=== PATIENT | male | born 1955 | race Caucasian/White ===

== ENCOUNTER → 2017-12-12 | Day surgery (SDC) | payer OTHER | END | disposition home or self-care (01) | LOC: JRADIR 12:04 | PROVIDERS: ATTEND Surgery | PROC: 0F9430Z Drainage of Gallbladder with Drainage Device, Percutaneous Approach (ICD-10-PCS; principal; 2017-12-12) | DX: T85.9XXA Unspecified complication of internal prosthetic device, implant and graft, initial encounter (principal); K80.20 Calculus of gallbladder without cholecystitis without obstruction | CPT/HCPCS: 47536; 49423; 74301-FY; A4358; C1729; C1769 ==

== ENCOUNTER 2018-01-17 10:40 | Day surgery (SDC) | payer OTHER ==
--- NOTE | 2018-01-16 13:08 | HP ---
DATE OF ADMISSION: The patient is to be admitted to the hospital tomorrow, January 17, 2018. HISTORY: This is a 62-year-old male admitted to the hospital for a cholecystectomy. The patient is morbidly obese and has had prior abdominal surgery. The patient had been offered an elective cholecystectomy in the past but had declined. More recently, he presented with acute cholecystitis that required percutaneous drainage. He has since recovered from that acute event and presents now for elective removal of his gallbladder for chronic cholecystitis and cholelithiasis. The patient had initially contemplated elective cholecystectomy a year ago but ultimately declined. He understands he is at high risk for conversion to an open procedure secondary to adhesions and to his morbid obesity. Unfortunately, he has continued to have multiple bouts of biliary colic despite a low-fat diet and as mentioned above was recently admitted to the hospital and required percutaneous drainage. PAST MEDICAL HISTORY: Significant for a small bowel stromal tumor, hypertension, arthritis, morbid obesity, chronic cholecystitis and cholelithiasis. PAST SURGICAL HISTORY: Laparotomy for small bowel resection and appendectomy. ALLERGIES: None known. SOCIAL HISTORY: Negative for tobacco. Negative for alcohol. MEDICATIONS: 1. Norvasc. 2. Prinivil. 3. Creatinine. 4. Gleevec. FAMILY HISTORY: Essentially nil. REVIEW OF SYSTEMS: Nil. PHYSICAL EXAMINATION: Abdomen obese, soft and nontender. Cholecystostomy tube in place in the right upper quadrant and draining. Large midline scar noted. IMPRESSION: 1. Chronic cholecystitis/cholelithiasis. 2. Recent acute cholecystitis requiring percutaneous drainage. Cholecystostomy tube is still in place. PLAN: Marisol cutdown laparoscopic cholecystectomy; possible open cholecystectomy. Indications, alternatives and possible complications, particularly but not limited to the possibility of intra-abdominal injury secondary to adhesive disease and the need for conversion, were review. Consent was obtained. The patient will be seen preoperatively by his primary medical doctors. Please refer to those notes for those medical details. MACI GOYAL M.D. [id number]
[2018-01-17] MEDS ORDERED: ERTAPENEM SODIUM 1 GM VIAL ONE (11:24)
[2018-01-17 11:53] VITALS: BMI 40.8
[2018-01-17] MEDS ORDERED: fentaNYL CITRATE 250 MCG/5 ML VIAL ONE (12:07)
[2018-01-17] MEDS ORDERED: LIDOCAINE HCL/PF 2% SDV 5ML VIAL ONE (12:07)
[2018-01-17] MEDS ORDERED: MIDAZOLAM HCL 2 MG/2 ML SINGLE DOSE VIAL ONE (12:07)
[2018-01-17] MEDS ORDERED: PROPOFOL 20 ML ONE ×2 (12:07)
[2018-01-17] MEDS ORDERED: ROCURONIUM BROMIDE 50 MG/5 ML VIAL ONE ×3 (12:07→15:17)
[2018-01-17] MEDS ORDERED: DEXAMETHASONE SOD PHOSPHATE 4 MG/1 ML VIAL ONE (12:07)
[2018-01-17] MEDS ORDERED: ERTAPENEM SODIUM 1 GM/50 ML PRE-DOCKED IVPB ONE (14:10)
[2018-01-17] MEDS ORDERED: PROMETHAZINE HCL 25 MG/1 ML VIAL IVPB PRN (15:50)
[2018-01-17] MEDS ORDERED: ONDANSETRON 4 MG/2 ML VIAL IVPUSH PRN ×2 (15:50→18:20)
[2018-01-17] MEDS ORDERED: LACTATED RINGERS SOLUTION 1,000 ML IV SCH (16:00)
[2018-01-17] MEDS ORDERED: GLYCOPYRROLATE 0.2 MG/1 ML VIAL ONE (16:14)
[2018-01-17] MEDS ORDERED: NEOSTIGMINE METHYLSULFATE 0.5 MG/ML - 10 ML MDV ONE (16:14)
[2018-01-17] MEDS: METOPROLOL TARTRATE 5 MG/5 ML VIAL IVPUSH ONE ×2 (17:00→20:23)
[2018-01-17] MEDS ORDERED: ACETAMINOPHEN INJECTION 100 ML IVPB ONE (17:48)
[2018-01-17] MEDS ORDERED: ACETAMINOPHEN 1000 MG/100 ML VIAL (NON FORMULARY) IVPB ONE ×2 (17:50→18:45)
[2018-01-17] MEDS ORDERED: KETOROLAC TROMETHAMINE 15 MG/ML VIAL IVPUSH PRN (18:19)
[2018-01-17] MEDS ORDERED: D5-1/2NS+20 MEQ KCL - 20 MEQ/1,000 ML INFUS.BAG IV SCH (18:30)
[2018-01-17] MEDS ORDERED: oxyCODONE HCL 5 MG TABLET PO PRN (18:38)
[2018-01-17] MEDS: morphine SULFATE 4 MG/ML VIAL IVPB PRN (20:33)
[2018-01-17] MEDS: FAMOTIDINE 20 MG/50 ML IVPB 20 MG/50 ML MG IVPB SCH (21:15)
--- NOTE | 2018-01-18 00:50 | OP ---
DATE OF OPERATION: 01/17/2018 PREOPERATIVE DIAGNOSIS: Chronic cholecystitis/cholelithiasis/cholecystostomy tube status. POSTOPERATIVE DIAGNOSIS: Chronic cholecystitis/cholelithiasis/cholecystostomy tube status. PROCEDURE: Laparoscopic cholecystectomy/removal of foreign body, extensive lysis of adhesions. SURGEON: Wilver Nguyen MD WEIGHT TRAINER: Eber Acosta MD ANESTHESIA: Patricia Garcia MD (general) HISTORY: A 62-year-old man who had prior abdominal surgery remotely. Patient went on to develop chronic cholecystitis and cholelithiasis, for which he was initially offered surgery but declined. More recently admitted with severe acute cholecystitis, which was managed with percutaneous cholecystostomy. Patient presents now at this juncture for laparoscopic cholecystectomy and removal of the cholecystostomy tube. Indications, alternatives, and possible complications were reviewed. Consent was obtained. DESCRIPTION OF PROCEDURE: With the patient in the supine position, administered general anesthesia, the abdomen was prepped and draped in the sterile fashion using Chlorhexidine. An infraumbilical midline incision was made in the preexisting midline scar and deepened into the subcutaneous base. The cutdown ensued until the peritoneum was identified, incised, and the abdominal cavity entered. Marisol catheter placed through the defect. The catheter was anchored to the skin. The abdomen was insufflated to an adequate pressure using CO2 gas. The camera lens was passed through the infraumbilical Marisol catheter. There were multiple adhesions in the abdomen at that level, which were difficult to navigate as there were no open spaces allowing access to the upper abdomen. At this juncture, the decision was made to perform Marisol catheter in the epigastric midline. Again, a small skin defect was created and the subcutaneous tissues . The fascia was incised as well as the peritoneum and the abdominal cavity entered. Again, a Marisol catheter was placed in the upper abdomen and anchored appropriately. The camera lens was passed through the epigastric port and the upper abdomen as relatively free. Two right upper quadrant 5-mm anterolateral ports were placed, which clamps were passed to allow lysis of adhesions. Under direct vision, the adhesions in the mid abdomen were taken down under direct vision, freeing the entire mid abdominal wall. Ultimately, the catheter at the infraumbilical port site was seen. The camera lens was then passed once again through the infraumbilical port. The operating instruments were passed through the epigastric port. The 5-mm anterolateral ports were used to provide retraction and aid in dissection. Exploration of the right upper quadrant revealed a gross chronic gallbladder, which was rock hard throughout its entire length and quite adherent to the liver. Gallbladder was freed. At the sera hepatis, the structures were identified. The cystic duct was noted en route to the common bile duct. The adjacent cystic artery was noted as well. The cystic duct appeared rather capacious despite normal liver function studies. Using a 30-mm EndoGIA with 2.5-mm clips, the cystic duct was taken at its junction with the gallbladder. The adjacent artery was managed with the ligature. In order to free the gallbladder from the gallbladder bed, the ligature was used throughout most of the dissection. Ultimately, the gallbladder was freed. The right upper quadrant was irrigated. The irrigant retrieved. Adequate hemostasis secured at the liver bed and the right upper quadrant. Gallbladder was placed in a retrieval bag. All ports were then removed under direct vision. No bleeding identified. Ultimately the gallbladder was extracted through the infraumbilical port site, which needed to be extended in order to facilitate delivery of the large calculus gallbladder. Gallbladder was ultimately delivered. The gas was allowed to escape from the peritoneal cavity. The fascia at both the infraumbilical and epigastric port sites were closed with interrupted number 1 Vicryl sutures. All skin wounds were closed using metallic clips. The cholecystostomy tube, which had been removed just prior to the onset of the procedure, was discarded. The needle and instrument count were correct. Estimated blood loss: Minimal. Specimens: Gallbladder. Drains: None. The patient tolerated the procedure. The procedure was terminated. Haris [id number] MTDD
[2018-01-18] MEDS: morphine SULFATE 4 MG/ML VIAL IVPB PRN (01:54)
[2018-01-18 05:44] VITALS: TEMP 98.2
[2018-01-18 09:13] VITALS: BP 143/89; PULSE 76
[2018-01-18] MEDS: FAMOTIDINE 20 MG/50 ML IVPB 20 MG/50 ML MG IVPB SCH (09:59)
[2018-01-18] MEDS ORDERED: LISINOPRIL 10 MG TABLET (FP) PO SCH (10:00)
[2018-01-18] MEDS ORDERED: ERTAPENEM SODIUM 1 GM in SODIUM CHLORIDE 100 ML IVPB SCH (10:00)
[2018-01-18] MEDS ORDERED: ENOXAPARIN NA (PORCINE) 40 MG/0.4 ML DISP.SYRIN SQ SCH (10:00)
[2018-01-18] MEDS ORDERED: HYDROCHLOROTHIAZIDE 25 MG TABLET (FP) PO SCH (10:00)
--- NOTE | 2018-01-18 12:52 | PN ---
Progress Note (short form) - Note Progress Note: Anesthesia postop note 62 y/o M s/p GA for Lap milady POD#1, vss, aaox3, no complaints. NO anesthesia complications.
--- NOTE | 2018-01-19 16:37 | PATH ---
Surgical Pathology Report Patient Name: ROSA IBANEZ [facility]. Rec. #: [id number] /Age/Gender: 1955 (Age: 62) / M Account: [id number] Location: [facility] SURGICAL Taken: 01/17/2018 Received: 01/18/2018 Reported: 01/19/2018 Physicians: Wilver Nguyen M.D. Specimen(s) Received GALLBLADDER Clinical History Calculus of gallbladder Final Diagnosis GALLBLADDER, LAPAROSCOPIC CHOLECYSTECTOMY: CHRONIC CHOLECYSTITIS WITH CHOLELITHIASIS. ONE BENIGN PERIDUCTAL LYMPH NODE (0/1). Electronically Signed Cassia Mcneill M.D. Gross Description Received in formalin, labeled "gallbladder," is a 7.0 x 3.3 x 3.3 cm. gallbladder with a 0.2 cm. in length portion of cystic duct attached. There is a 1.1 cm in greatest dimension periductal lymph node present. The outer surface is drew-brown with a focal defect and varies from smooth to shaggy. The lumen contains black, sludgelike bile as well as a 4 cm in greatest dimension black, ovoid cholelith. The mucosa is brown and eroded. The wall of the gallbladder ranges from 0.1-1.1 cm. in thickness. Asset Manager sections are submitted in 2 cassettes as follows: 1-cystic duct margin and one whole bisected lymph node; 2-sales representative business courses mucosa.. DL/01/18/2018 saudi/01/18/2018
== END 2018-01-18 14:57 | disposition home or self-care (01) ==
LOC: JASU-SURG 10:40 → J8W 20:18 → JASU-SURG 01-18 14:57
PROVIDERS: ATTEND Surgery
PROC: 0FT44ZZ Resection of Gallbladder, Percutaneous Endoscopic Approach (ICD-10-PCS; principal; 2018-01-17 12:30)
DX: K80.10 Calculus of gallbladder with chronic cholecystitis without obstruction (principal)
CPT/HCPCS: 86850; 86900; 86901; 88304-TC; 94760; J0131